=== PATIENT | male | born 1950 | race Caucasian/White ===

== ENCOUNTER → 2023-12-19 07:24 | Outpatient (CLI) | payer MEDICARE, OTHER, SELFPAY ==
--- NOTE | 2023-12-19 07:28 | DI.ECHO.S_ITS ---
[place] [facility]---------+ [facility] +---------+ : : [address] . : : : : [address] : : : : [id number] : : : : Phone: [phone]+ Echocardiogram Report + + :Name: CUAUHTEMOC LUO Study Date: 12/19/2023 Height: 73 in : :[facility] ReadingLocation: Weight: 207 lb : : Gender: Male BSA: 2.2 m2 : :: 1950 Age: 73 yrs BP: 131/80 mmHg: :Reason For Study: ATRIAL FLUTTER : :Ordering Physician: BYRON, : :TESFAYE Performed By: Ankit Davis : :Referring: TESFAYE MATTHEWS : + + Interpretation Summary The left ventricle is normal in size and wall thickness. The left ventricular ejection fraction is normal. The ejection fraction is estimated to be 60-65%. The right ventricle is mild to moderately dilated. The right ventricular systolic function is normal. There is mild mitral regurgitation. There is mild tricuspid regurgitation. The right ventricular systolic pressure is estimated to be at least 40 mmHg based on an estimated right atrial pressure of 15 mm Hg. Procedure: A two-dimensional transthoracic echocardiogram with color flow and Doppler was performed. The study quality was technically adequate. There is no prior echocardiogram noted for this patient. The patient was in atrial flutter with heart rates between 41-63 bpm during the exam. Left Ventricle: The left ventricle is normal in size and wall thickness. There is no thrombus. A false chord is noted (normal variant). The ejection fraction is estimated to be 60-65%. The left ventricular ejection fraction is normal. There are no focal wall motion abnormalities. Diastolic function could not be accurately assessed due to atrial fibrillation. Right Ventricle: The right ventricle is mild to moderately dilated. The right ventricular systolic function is normal. Atria: The left atrium is moderately dilated. The right atrium is moderately dilated. The interatrial septum grossly appears intact with no obvious evidence for an atrial septal defect. Mitral Valve: The mitral valve leaflets appear mildly thickened, but open well. There is no mitral valve stenosis. There is mild mitral regurgitation. Aortic Valve: The aortic valve is trileaflet. There is no aortic valve stenosis. No aortic regurgitation is present. Tricuspid Valve: The tricuspid valve is normal. There has been no significant change since the previous study. There is mild tricuspid regurgitation. The right ventricular systolic pressure is estimated to be at least 40 mmHg based on an estimated right atrial pressure of 15 mm Hg. Pulmonic Valve: The pulmonic valve is not well visualized. There is no pulmonic valvular stenosis. There is a trace or physiologic amount of pulmonic regurgitation. Great Vessels: The aortic root is normal size. The ascending aorta is at the upper limits of normal in size. The IVC is dilated (diameter is greater than 2.1 cm) and it collapses less than 50% with a sniff. This suggests a high right atrial pressure of 15 mm Hg. Pericardium/ Pleura There is no pericardial effusion. There is no pleural effusion. MMode/2D Measurements & Calculations LVIDd: 5.1 cm LVOT diam: 2.5 cm LVIDs: 3.3 cm Ao root diam: 3.5 cm FS: 36.0 % asc Aorta Diam: 3.7 cm IVSd: 1.1 cm Ao Arch Diam (Prox Trans): 2.9 cm LVPWd: 0.99 cm LV de la cruz. diameter/BSA (cm/m^2): 2.3 LV sys. diameter/BSA (cm/m^2): 1.5 LA A2 area: 19.4 cm2 RA long axis: 6.8 cm LA A4 area: 22.8 cm2 RA area: 30.0 cm2 LA length (vol): 5.8 cm RA vol: 112.5 ml LA vol: 64.5 ml RA : 51.5 ml/m2 LA vol index: 29.5 ml/m2 IVC diam: 2.4 cm RVD1 (basal): 4.6 cm RVD2 (mid): 4.1 cm TAPSE: 3.1 cm Doppler Measurements & Calculations Ao V2 max: 135.8 cm/sec LVOT Max Kailash: 122.1 cm/sec Ao V2 mean: 90.4 cm/sec LV V1 max P.0 mmHg Ao max P.4 mmHg LV V1 VTI: 26.0 cm Ao mean P.8 mmHg MARIBETH(I,D): 4.1 cm2 Ao V2 VTI: 30.2 cm MARIBETH(V,D): 4.3 cm2 sev ratio: 0.86 MARIBETH indexed to BSA (cm^2/m^2): 1.9 Med Peak E' Kailash: 13.5 cm/sec TR max kailash: 250.8 cm/sec Lat Peak E' Kailash: 13.5 cm/sec TR max P.2 mmHg PA V2 max: 96.4 cm/sec PA V2 mean: 73.0 cm/sec PA mean P.3 mmHg PA pr(Accel): 32.8 mmHg SV(LVOT): 123.4 ml Reading Physician:05:13 PM
== END ==
LOC: ECHO 07:26
PROVIDERS: PCP Physician Assistant Medical; Referring Provider Physician Assistant Medical; Visit Provider Physician Assistant Medical
DX: I08.1 Rheumatic disorders of both mitral and tricuspid valves (principal); I48.92 Unspecified atrial flutter
CPT/HCPCS: 93306

== ENCOUNTER → 2024-05-29 09:46 | Outpatient (CLI) | payer MEDICARE, OTHER, SELFPAY ==
--- NOTE | 2024-05-29 10:15 | EKG_ITS ---
[place] [address] [address] [place] [id number] Test Date: 2024-05-29 Pat Name: Roxanne Alvares Department: [facility] Room: Gender: Male [employer] Machine Operator: TEREZA : 1950 Requested By: Order Number: [id number] Reading MD: Eldon Yoo Measurements Intervals [place] Rate: 61 P: ME: 376 QRS: -83 QRSD: 172 T: 71 QT: 462 QTc: 465 Interpretive Statements Atrial-sensed ventricular-paced rhythm with prolonged AV conduction Electronically Signed On 05-31-2024 7:40:14 PDT by Eldon Yoo
[2024-05-29 10:36] LABS: Add Manual Diff / Slide Review NO; Basophils Absolute Auto 0 /uL (0-100); Basophils Percent Auto 0.5 % (0-2); Eosinophils Absolute Auto 100 /uL (0-450); Eosinophils Percent Auto 4.4 % (2-4); Hemoglobin 13.7 g/dL (13.5-17.5); Lymphocytes Absolute Auto 800 /uL (1100-4500); Lymphocytes Percent Auto 30.9 % (25-40); Mean Corpuscular HGB Conc 34.2 % (30-36); Mean Corpuscular Hemoglobin 32.2 PG (26-34); Mean Corpuscular Volume 94.2 fL (80-100); Monocytes Absolute Auto 400 /uL (0-900); Monocytes Percent Auto 15.4 % (3-14); Neutrophils Absolute Auto 1200 /uL (1500-7000); Neutrophils Percent Auto 48.8 % (50-75); Platelet Count 247 X10^3/uL (150-400); Red Blood Cell Count 4.24 X10^6/uL (4.5-5.9); Red Cell Distribution Width 13.9 % (11.6-14.8); White Blood Cell Count 2.4 X10^3/uL (4.5-11.0)
[2024-05-29 10:48] LABS: Hemoglobin A1C% w Est Avg Glu 5.2 % (4.0-6.0)
[2024-05-29 10:56] LABS: Albumin 4.1 g/dL (3.5-5.0); BUN Creatinine Ratio 22.2 (6-22); Blood Urea Nitrogen 20 mg/dL (9-20); Calcium 9.4 mg/dL (8.4-10.2); Carbon Dioxide 27 mmol/L (22-32); Chloride 99 mmol/L (98-107); Estimated Glomerular Filt Rate > 60 mL/min (>60); Glucose 103 mg/dL (80-110); HEMOLYSIS < 15 (0-50); Potassium 4.7 mmol/L (3.4-5.1); Sodium 130 mmol/L (137-145)
[2024-05-29 11:03] LABS: Prealbumin 24.9 mg/dL (17.6-36.0)
[2024-05-29 11:15] LABS: Vitamin D 25 Hydroxy (D3) 44.1 ng/mL (30.0-100.0)
== END ==
PROVIDERS: PCP Physician Assistant Medical; Referring Provider Orthopaedic Surgery Adult Reconstructive Orthopaedic Surgery; Visit Provider Orthopaedic Surgery Adult Reconstructive Orthopaedic Surgery
DX: Z01.818 Encounter for other preprocedural examination (principal); R73.9 Hyperglycemia, unspecified; E55.9 Vitamin D deficiency, unspecified; R77.0 Abnormality of albumin; Z01.812 Encounter for preprocedural laboratory examination
CPT/HCPCS: 36415; 80048; 82040; 82306; 83036; 84134; 85025; 93005

== ENCOUNTER 2024-09-21 05:54 | Day surgery (SDC) | payer MEDICARE, OTHER, SELFPAY ==
[2024-09-11 08:09] VITALS: BMI 26.9
[2024-09-21] VITALS (13 sets, daily range): BP systolic 86–142; BP diastolic 47–80; PULSE 60–78; RESP 14–19; TEMP 36.1–37.3; O2SAT 94–100; BMI 25.9
--- NOTE | 2024-09-21 06:00 | DI.RAD.S_ITS ---
PROCEDURE: XR KNEE LT 1TO2V INDICATIONS: tka TECHNIQUE: 2 view(s) of the knee acquired. COMPARISON: None. FINDINGS: Bones: Patient is status post knee joint arthroplasty. Hardware components are in expected positions. Visualized bony structures are intact. Soft tissues: Overlying postoperative changes are noted. IMPRESSION: Expected post-operative appearance of a knee arthroplasty. Dictated by: Stephen Hart M.D. on 09/22/2024 at 9:10 Approved by: Stephen Hart M.D. on 09/22/2024 at 9:10
[2024-09-21] MEDS: MELOXICAM 7.5 MG TABLET 15 MG PO (06:45)
[2024-09-21] MEDS: ACETAMINOPHEN 325 MG TABLET 975 MG PO (06:45)
[2024-09-21] MEDS: FAMOTIDINE 20 MG/2 ML VIAL IV (06:46)
[2024-09-21] MEDS: LACTATED RINGERS 1,000 ML 42 ML IV ×2 (06:56→09:15)
--- NOTE | 2024-09-21 07:46 | PM.PREOP ---
Pre-operative Note Interval Note History & Physical reviewed/Exam performed by Physician: Yes Changes to H&P: No
[2024-09-21] MEDS: CEFAZOLIN 2 GM/100 ML PREMIX 100 ML IV (08:05)
[2024-09-21] MEDS: TRANEXAMIC ACID 1,000 MG VIAL 2000 MG INJ ×2 (08:10→09:34)
--- NOTE | 2024-09-21 08:26 | SUR.OPER ---
Supine on padded OR bed. Pillow under head, arms secured on padded armboards <90 degree abduction. Safety belt across torso. Non-operative leg secured with tape over blanket over lower leg. Operative leg secured in [employer] positioner. Foam padded brace at thigh of operative leg.
[2024-09-21] MEDS: ROPIVACAINE/EPI/CLONIDINE/KET 50 ML SYRINGE INJ (09:05)
[2024-09-21] MEDS: OXYCODONE IR 5 MG TABLET PO ×2 (10:42→11:53)
--- NOTE | 2024-09-21 11:03 | P.OP_ITS ---
Operative Date/Time/Diagnoses Date of procedure: 09/21/24 Pre-op diagnosis: Left knee osteoarthritis Post-op diagnosis: same Procedure & Clinicians Procedure: Left total knee arthroplasty Same procedure as scheduled: Yes Surgeon: Chris Cannon Automotive Design Drafter: Mary Ann Wilkerson Anesthesia Type: Spinal, Sedation, Peripheral nerve block and Local Operative Notes Estimated Blood Loss (mL): 200 Procedure in detail: Left Gap-Balanced Ben Persona Medial-Congruent Primary Total Knee Arthroplasty Implants: * Size 10 Cruciate Retaining Femoral Component * Size H Tibial Component * Size 14 Medial Congruent Polyethylene Insert * Unresurfaced Patella Procedure Summary: This 74-year-old male patient is very active. I anticipated that he would have high bone quality for his age and therefore planned to use uncemented fixation. I found that his bone quality was as high as anticipated and therefore move forward with uncemented fixation for him. 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 I noted that he had some mild lateral-sided opening in terminal extension on the other side and therefore planned to leave him in slight varus on this side. I made a varus cut on the proximal tibia and a standard 5 degree cut on the distal femur. Despite relatively minimal resections of +1 on the femoral side and +4 on the tibial side I noted that he had a rather large extension gap after resections, opening to 12 mm with only 40 lb of pressure. I anticipated that a larger polyethylene insert would therefore be necessary and ended up using a 14 mm insert. Procedure in Detail: This patient was seen preoperatively and evaluated for knee pain which was refractory to numerous nonoperative treatment modalities. Their pain correlated with radiographic changes demonstrating significant degeneration in the knee joint. The risks and benefits of continued nonoperative management versus operative management were discussed at length and all of the patient?s questions were answered. Additional educational materials providing further details beyond our discussion in clinic were provided via a publicly available patient education video which included the incidence of medical complications associated with total knee arthroplasty, reasons for revision following total knee arthroplasty, and patient satisfaction rates following total knee arthroplasty. That video can be accessed at [email or web address] . With this understanding of the risks inherent to the procedure, the patient elected to move forward with operative management. Following preoperative optimization, the patient was scheduled for surgery. The patient was met in the preoperative holding area the day of the procedure and all questions were answered. The patient?s nares were swabbed with betadine in order to decolonize them from MRSA. Informed consent was signed and the left limb was marked with indelible ink.? The patient was brought back to the operating room where anesthesia was induced. The patient was transferred to the operating table and all bony prominences were padded. The operative site was prepped and draped in the usual sterile fashion. A second prep stick was utilized following drape placement. The incision was marked corresponding to the medial aspect of the tibial tubercle and the patella. Ioban was wrapped circumferentially around the knee. Prior to incision, tranexamic acid and cefazolin were administered. Templating images were displayed. A timeout procedure was performed verifying the patient?s identity, medical comorbidities, allergies, relevant medications, anesthesia type and the surgical plan. All present were in agreement. The assistance of a physician legal support assistant was required for positioning, room setup, soft tissue retraction and wound closure. Without this assistance, the procedure would have been significantly more challenging and time consuming.?? The tourniquet was inflated prior to incision. I made an anterior incision over the knee, dissected through the subcutaneous tissues and identified the lateral border of the VMO. Medial and lateral soft tissue flaps were developed. A mid vastus arthrotomy was performed ensuring that adequate capsular tissue would remain for closure at the conclusion of the procedure. The hip was brought into extension and the medial soft tissues were released off the joint line of the tibia. Tissue overlying the distal anterior femur was released to allow for later assessment for anterior notching but left in place. A portion of the retropatellar fat pad was excised while protecting the patellar tendon. The pa tella was everted. The patella was not resurfaced. Osteophytes were excised and a lateral facetectomy was performed. The patella was released from its everted position.?? I flexed the knee to 90 degrees and placed retractors to allow access to the notch. An opening reamer was used to gain access to the femoral canal and an intramedullary beni was introduced into the canal. Diaphyseal fit was obtained in order to allow a distal femoral resection at 5 degrees relative to the anatomic axis, thereby aiming to achieve mechanical alignment of the eventual implant. A +1 resection was planned and assessed using an jill wing. I then made the cut using a sagittal saw. This provided additional access to the femoral notch. The ACL and PCL were excised. Retractors were placed on the lateral and medial tibia. I hyperflexed the knee while externally rotating it to sublux the tibia anteriorly. I placed a PCL retractor posteriorly and used this to provide additional anterior subluxation. The remainder of the PCL root was released. An intramedullary reamer was used in the ACL footprint to provide access to the tibial canal. An extramedullary guide was positioned to allow a resection in slight varus. A +4 resection off the medial tibia was planned and the tibial cutting jig was pinned in place. I evaluated the cut depth, varus-valgus alignment and slope of the planned tibial resection and deemed them satisfactory. I cut the tibia with a sagittal saw while using retractors to protect the MCL, patellar tendon, and posterolateral structures.? The knee was repositioned in extension and the Fuzion soft tissue balancing gauge was introduced. This demonstrated that there was equal tension in the medial and lateral compartments of the knee with the knee in full extension and no additional soft tissue releases were necessary. When 40 pounds of force was applied to the Fuzion device, the extension gap opened to 12 mm. I moved the knee into 90 degrees of flexion, and the Fuzion device was recalibrated by removing a 9 mm ashley to allow assessment of the flexion gap. The Fuzion was placed perpendicular to the resected surface of the tibia and the resected surface of the distal femur. Forty pounds of traction was applied to match the tension of the extension gap. This externally rotated the femur to 6 degrees. Pins were placed in the 12 mm holes. The measured resection guide was placed ov er the pins to allow sizing. Appropriate sizing was determined and a 4-in-1 block was placed. This was double checked using the Fuzion device to ensure that it would open to an equal distance as the extension gap when the same amount of force was applied. The Fuzion block was also used to assess flexion gap symmetry. An jill wing was used to ensure there would be no anterior notching. Retractors were placed to protect the soft tissues during resection. Captured cuts were performed with a sagittal saw for the anterior and posterior femur as well as the corresponding chamfers.? Trial components were placed and the construct was assessed. Range of motion was assessed by ensuring the knee could achieve full extension and assessing maximum passive knee flexion by elevating the femur and allowing the heel to passively fall towards the buttock. Gap symmetry was assessed by stressing the medial and lateral compartments in both extension and flexion. Laxity was assessed in both extension and flexion and the polyethylene trial was adjusted with shims as necessary. Patellar tracking was assessed with knee flexion. Once satisfied with the construct, I moved forward with implant insertion. Lug holes were drilled in the femur and the tibia was prepped ensuring appropriate sizing and rotation relative to the tibial tubercle.?? The bony ends were irrigated and cement was prepared. Portions of the anterior chamfer cut were utilized as cement restrictors in the femur and tibia where intramedullar rods had been utilized. Cement was placed on the entirety of the undersurface of both the tibial and femoral components. Cement was placed onto the dry tibia and pressurized into the cancellous bone. I impacted the tibial component into place. Cement was removed. The tibia was reduced underneath the femur and placed cement onto the dry surface of the resected femur. I placed the femoral component as well as the intended polyethylene trial. Cement was removed from around the femur. I brought the knee into extension and manually pressurized the construct by pushing on the heel while the cement dried. The knee was bathed in a dilute mixture of betadine and peroxide. A mixture of Ropivacaine, Epinephrine, Clonidine and Toradol was infiltrated throughout the soft tissues into structures including the VMO, patellar tendon, quadriceps tendon, MCL and femoral periosteum. A low adductor canal block was also performed using this mixture unless one had been placed preoperatively by anesthesia. The knee was copiously irrigated with pulse lavage. Once cement had been allowed to dry the knee was again trialed. Range of motion was assessed by ensuring the knee could achieve full extension and assessing maximum passive knee flexion by elevating the femur and allowing the heel to passively fall towards the buttock. Gap symmetry was assessed by stressing the medial and lateral compartments in both extension and flexion. Laxity was assessed in both extension and flexion and the polyethylene trial was adjusted with shims as necessary. Patellar tracking was assessed with knee flexion. The tourniquet was let down and the polyethylene trial was removed. I inspected the knee inspected for excess cement and any residual bleeding. Once hemostasis was achieved I inserted the final polyethylene and ensured appropriate engagement of the dovetail locking mechanism.?? The arthrotomy was closed with absorbable interrupted suture ensuring that this extended to the top of the arthrotomy. This was backed up with running barbed suture throughout the arthrotomy. The skin was closed with 2-0 and 3-0 sutures. Surgical glue was applied and a soft dressing was placed.?The sponge, instrument and needle counts were reported as being correct at the end of the case.??No obvious complications occurred. The patient was transferred from the operating table back to a stretcher. The patient emerged from anesthesia without difficulty and was taken to the PACU in a stable condition.? Plan for aftercare: * Weightbearing as tolerated * Mobilization as soon as the patient has recovered from anesthesia. If physical therapists are unavailable at the time the patient is ready to ambulate, then nursing staff should help patient ambulate * Eliquis at baseline dosages for DVT prophylaxis to begin on Saturday the * Cefadroxil 500 mg twice per day for periprosthetic joint infection prophylaxis given his history of leukopenia * Incisional wound VAC utilized during today's surgery. This should remain in place until his follow up visit. The battery he will after week which time the cord can be removed and it can be used as a normal dressing * Multimodal pain regimen with no IV opioids ordered * Anticipate discharge home later today * Follow up at [facility] in 2 weeks * Detailed postoperative instructions available at [email or web address]
[2024-09-21] MEDS: LACTATED RINGERS 1,000 ML 100 ML IV (11:17)
--- NOTE | 2024-09-21 14:09 | PT.IIE ---
Current Diagnoses Unilateral primary osteoarthritis, left knee (09/21/24) Surgery Performed Operation Date: 09/21/24 07:45 Actual Procedures p Total Knee Arthroplasty(Left) - Chris Cannon MD Surgical History (Last Reviewed 09/21/24 @ 06:33 by Nadia King, RN) History of cardiac radiofrequency ablation (04/02/24) History of total right knee replacement (07/2023) History of umbilical hernia repair Hx of inguinal hernia repair (1999) Status post de Quervain's release surgery Medical History (Last Reviewed 09/21/24 @ 06:33 by Nadai King, RN) Atrial flutter Hypercholesteremia Interstitial cystitis Leukocytopenia Osteoarthritis Pacemaker (04/10/24) Paroxysmal atrial flutter Prostate cancer Sinus node dysfunction Physical Therapy Inpatient Evaluation/Re-Eval M1 PT/OT-IP Prior Functional Status Start: 09/21/24 14:01 Freq: NEEDED Status: Active Protocol: Document 09/21/24 14:02 KJ (Rec: 09/21/24 14:08 KJ [id number]) Medical Review Prior Functional Status Mobility and Gait Indep ambulation w/out AD Social History Household Members spouse Living Arrangements House Home Environment Standard Height Toilet Home Equipment Front Wheel Walker Additional Social History Comment Lives with in single level home. Had R TKR one year ago. M2 PT-IP Current Condition Start: 09/21/24 14:01 Freq: NEEDED Status: Active Protocol: Document 09/21/24 14:02 KJ (Rec: 09/21/24 14:08 KJ [id number]) Physical Therapy Current Condition Current Condition Evaluation Date 09/21/24 Treatment Diagnosis Impaired mobility s/p L TKR M3 PT-IP Subjective Start: 09/21/24 14:01 Freq: NEEDED Status: Active Protocol: Document 09/21/24 14:02 KJ (Rec: 09/21/24 14:08 KJ [id number]) Subjective Physical Therapy Visit Type Type Initial Evaluation Visit Start Time 13:11 Visit Stop Time 14:01 Physical Therapy Visit Comments Patient Goals To go home today Therapy Pain Assessment Pain When Pain Assessed During Mobility Pain Present Pain Present Pain Reported Location Left Knee Pain Management Techniques Re-positioning,Timing of Activity with Medications M4 PT-IP Mobility and Gait Start: 09/21/24 14:01 Freq: NEEDED Status: Active Protocol: Document 09/21/24 14:02 KJ (Rec: 09/21/24 14:08 KJ [id number]) PT-Bed Mobility Assessment Rolling Type of Rolling Roll to Left Level of Assist Contact Guard Assistance Supine to Sit Supine to Sit Contact Guard Assistance Scooting Scooting to Edge of Bed Standby Assistance PT-Transfer Assessment Sit to and From Stand Sit to and from Stand Contact Guard Assistance Equipment Transfer Assistive Device Gait Belt,Front Wheeled Walker Transfers Transfer Destination Chair Transfer Technique Stand Step Pivot Transfer Ability Level of Assist Contact Guard Assistance Gait Assessment Gait Gait Assistance Required: Contact Guard Assist Distance (Feet) 3 Able to Maintain Weight Bearing Status Yes During Gait Assistive Devices Assistive Device Gait Belt,Front Wheeled Walker Gait Deviations General Gait Pattern Step-to Gait Comments Gait Comments ambul well for first time up Stair Climbing Assessment Comments Stair Climbing Comments verbally reviewed stairs with patient and PT-Balance Assessment Sitting Balance and Reactions Static Sitting Balance Ability Good Dynamic Sitting Balance Ability Good Standing Balance and Reactions Static Standing Balance Ability Good Dynamic Standing Balance Ability Fair M5 PT-IP Objective Assessments Start: 09/21/24 14:01 Freq: NEEDED Status: Active Protocol: Document 09/21/24 14:02 KJ (Rec: 09/21/24 14:08 KJ [id number]) Gross Range of Motion Upper Extremity ROM Assessment Within Functional Limits Lower Extremity ROM Assessment Left Impaired Impairments L knee decreased Strength Upper Extremity Strength Assessment Within Functional Limits Lower Extremity Strength Assessment Left Impaired Knee L knee flex/ext 4/5 M6 PT-IP Treatment Start: 09/21/24 14:01 Freq: NEEDED Status: Active Protocol: Document 09/21/24 14:02 KJ (Rec: 09/21/24 14:08 KJ [id number]) Physical Therapy Treatment Exercises Exercises Ankle Pumps,Gluteal Sets,Quad Sets Education Education Provided Weight Bearing Status,Safety M7 PT-IP Assessment and Plan Start: 09/21/24 14:01 Freq: NEEDED Status: Active Protocol: Document 09/21/24 14:02 KJ (Rec: 09/21/24 14:08 KJ [id number]) PT Summary Assessment and Plan Potential Rehabilitation Potential Excellent Status of Condition at Evaluation Evolving Summary Impairments Pain,ROM,Strength,Transfers, Gait Progress Towards Goals Progressing Toward Goals Goals Bed Mobility Goal Independent Transfer Goal Independent Gait Goal Independent Gait Distance 100 Days to Meet Goals 2 Frequency of Treatment Frequency Of Treatment Twice a Day Treatment Plan Physical Therapy Treatment Plan Bed Mobility Training,Transfer Training,Gait Training, Therapeutic Exercise Weight Bearing Status Weight Bearing Status Weight Bear as Tolerated Recommendations To Nursing Amount of Assist Needed 1 Person Assist Discharge Recommendations PT Discharge Recommendations Home with Assistance
--- NOTE | 2024-09-21 14:58 | PC.NURSE ---
D/c instructions reviewed with pt. Discussed recommendations for reducing constipation from opioids. IV removed. Pt exited via w/c with CLIENT SERVICES ASSOCIATE and spouse to private vehicle.
== END 2024-09-21 14:30 | disposition home or self-care (01) ==
LOC: OR 05:55 → AC 05:56
PROVIDERS: PCP Physician Assistant Medical; Referring Provider Orthopaedic Surgery Adult Reconstructive Orthopaedic Surgery; Visit Provider Orthopaedic Surgery Adult Reconstructive Orthopaedic Surgery
PROC: 0SRD0JZ Replacement of Left Knee Joint with Synthetic Substitute, Open Approach (ICD-10-PCS; CPT 27447; principal; 2024-09-21 07:45)
DX: M17.12 Unilateral primary osteoarthritis, left knee (principal); Z79.01 Long term (current) use of anticoagulants; Z95.0 Presence of cardiac pacemaker; Z96.651 Presence of right artificial knee joint
CPT/HCPCS: 27447; 73560; 97110; 97116; 97161; C1776; C1713; J0690; J1100; J2405; J2704; J3010